=== PATIENT | female | born 1970 | race Asian ===

== ENCOUNTER 2016-11-23 07:15 | Outpatient (CLI) | payer OTHER ==
[2016-11-23 07:28] LABS: PLATELET COUNT 184 K/uL (152-353)
[2016-11-23 08:02] LABS: POTASSIUM 3.6 mmol/L (3.6-5.2); SODIUM 135 mmol/L (136-145)
== END 2016-11-23 08:20 | disposition home or self-care (01) ==
LOC: LABW 07:15
PROVIDERS: Internal Medicine
DX: E11.9 Type 2 diabetes mellitus without complications (principal)
CPT/HCPCS: 36415; 80053; 80061; 81000; 82043; 82570; 83036; 84443; 85027

== ENCOUNTER 2017-06-04 13:25 | Outpatient (CLI) | payer OTHER ==
[2017-06-04 13:50] LABS: PLATELET COUNT 217 K/uL (152-353)
[2017-06-04 14:11] LABS: POTASSIUM 3.9 mmol/L (3.6-5.2)
== END 2017-06-04 18:51 | disposition home or self-care (01) ==
LOC: LABW 13:25
PROVIDERS: Physician Assistant
DX: E11.9 Type 2 diabetes mellitus without complications (principal); I10 Essential (primary) hypertension; D64.89 Other specified anemias
CPT/HCPCS: 36415; 80053; 80061; 83036; 84439; 84443; 85027

== ENCOUNTER 2017-07-10 14:35 | Outpatient (CLI) | payer OTHER | END 2017-07-10 22:03 | disposition home or self-care (01) | LOC: MAMMO 14:35 | DX: Z12.31 Encounter for screening mammogram for malignant neoplasm of breast (principal) ==

== ENCOUNTER 2018-12-24 09:45 | Outpatient (CLI) | payer OTHER ==
[2018-12-24 10:11] LABS: PLATELET COUNT 214 K/uL (152-353)
== END 2018-12-24 23:35 | disposition home or self-care (01) ==
LOC: LABW 09:45
PROVIDERS: Physician Assistant
DX: I10 Essential (primary) hypertension (principal); D64.9 Anemia, unspecified; E11.40 Type 2 diabetes mellitus with diabetic neuropathy, unspecified; E11.65 Type 2 diabetes mellitus with hyperglycemia
CPT/HCPCS: 36415; 80053; 80061; 82306; 83036; 84443; 85027

== ENCOUNTER 2020-05-31 15:05 | Emergency (ER) | payer OTHER ==
[~2020-05-31] VITALS: Ht 165.1 cm; Wt 60.8 kg
[2020-05-31 15:17] VITALS: TEMP 98.9
[2020-05-31 16:45] LABS: PLATELET COUNT 179 K/uL (152-353)
[2020-05-31 16:47] LABS: POTASSIUM 3.4 mmol/L (3.6-5.2)
[2020-05-31 17:54] VITALS: BP 132/80
== END 2020-05-31 17:54 | disposition home or self-care (01) ==
LOC: ED 15:05
PROVIDERS: Hospitalist
DX: E11.65 Type 2 diabetes mellitus with hyperglycemia (principal); E72.51 Non-ketotic hyperglycinemia
CPT/HCPCS: 36415; 80053; 80320; 81002; 81025; 85027; 93005; 96360; 96375; 99284; J1815

== ENCOUNTER 2022-01-18 08:48 | Outpatient (CLI) | payer OTHER ==
[2022-01-18 09:14] LABS: PLATELET COUNT 157 K/uL (152-353)
[2022-01-18 09:33] LABS: POTASSIUM 3.4 mmol/L (3.6-5.2)
== END 2022-01-18 19:08 | disposition home or self-care (01) ==
LOC: LABW 08:48
PROVIDERS: ATTEND Podiatrist
DX: E11.9 Type 2 diabetes mellitus without complications (principal); I10 Essential (primary) hypertension; F41.9 Anxiety disorder, unspecified; F32.A Depression, unspecified; M25.50 Pain in unspecified joint; K21.9 Gastro-esophageal reflux disease without esophagitis; E55.9 Vitamin D deficiency, unspecified; M84.871 Other disorders of continuity of bone, right ankle and foot; R82.998 Other abnormal findings in urine
CPT/HCPCS: 36415; 80053; 80061; 81002; 81015; 82306; 83036; 83735; 84439; 84443; 84550; 85027; 87077; 87086; 87088; 87186

== ENCOUNTER 2022-03-08 09:40 | Outpatient (CLI) | payer OTHER | END 2022-03-08 19:29 | disposition home or self-care (01) | LOC: MAMMO 09:40 | PROVIDERS: ATTEND Family Medicine | DX: Z13.820 Encounter for screening for osteoporosis (principal); Z78.0 Asymptomatic menopausal state; Z12.31 Encounter for screening mammogram for malignant neoplasm of breast ==

== ENCOUNTER 2022-04-01 07:56 | Emergency (ER) | payer OTHER ==
[~2022-04-01] VITALS: Ht 165.1 cm; Wt 60.8 kg
[2022-04-01 09:15] LABS: PLATELET COUNT 200 K/uL (152-353)
[2022-04-01 09:22] LABS: POTASSIUM 3.9 mmol/L (3.6-5.2)
[2022-04-01 12:55] VITALS: BP 108/72; TEMP 97.6
== END 2022-04-01 12:55 | disposition home or self-care (01) ==
LOC: ED 07:56
PROVIDERS: Emergency Medicine
DX: R10.13 Epigastric pain (principal); R63.4 Abnormal weight loss; A59.9 Trichomoniasis, unspecified
CPT/HCPCS: 80053; 81000; 83690; 84484; 85027; 87077; 87086; 87088; 87186; 93005; 96360; 96374; 96375; 99284; J2405; J3490

== ENCOUNTER 2022-04-27 08:11 | Outpatient (CLI) | payer OTHER | END 2022-04-27 20:39 | disposition home or self-care (01) | LOC: RAD 08:11 | PROVIDERS: ATTEND Internal Medicine | DX: Z53.8 Procedure and treatment not carried out for other reasons (principal); Z12.11 Encounter for screening for malignant neoplasm of colon ==

== ENCOUNTER 2022-06-02 10:00 | Outpatient (CLI) | payer OTHER | END 2022-06-02 19:23 | disposition home or self-care (01) | LOC: RAD 10:00 | PROVIDERS: ATTEND Family Medicine | DX: R10.9 Unspecified abdominal pain (principal); R19.7 Diarrhea, unspecified ==

== ENCOUNTER 2022-06-09 11:05 | Observation (INO) | payer OTHER ==
[~2022-06-09] VITALS: Ht 160 cm; Wt 45.6 kg
[2022-06-09 12:46] LABS: PLATELET COUNT 225 K/uL (152-353)
[2022-06-09 12:54] VITALS: BP 138/94; TEMP 97.7; Ht 160 cm; Wt 45.6 kg
[2022-06-09 13:29] LABS: POTASSIUM 3.8 mmol/L (3.6-5.2)
[2022-06-09] MEDS ORDERED: MOBIC15 MG PO (14:01)
[2022-06-09] MEDS ORDERED: METF100038 PO (14:02)
[2022-06-09] MEDS ORDERED: GABA300C2 PO (14:02)
[2022-06-09] MEDS ORDERED: LISI5TAB10 PO (14:02)
[2022-06-09] MEDS ORDERED: PROTONIX20 MG PO (14:03)
[2022-06-09] MEDS ORDERED: LINZESS290 MCG PO (14:03)
[2022-06-09] MEDS ORDERED: OMEP40CA PO (14:04)
[2022-06-09] MEDS ORDERED: LANTUS100 UNIT/M SC (14:06)
[2022-06-09 16:00] VITALS: BP 136/91; TEMP 98.8
[2022-06-09 19:43] VITALS: BP 141/90; TEMP 98.7
[2022-06-09 23:53] VITALS: BP 150/90; TEMP 98.3
[2022-06-10 03:45] VITALS: BP 142/87; TEMP 98.5
[2022-06-10 08:00] VITALS: BP 130/87; TEMP 98
[2022-06-10 08:36] VITALS: BP 130/87; TEMP 98
[2022-06-10 12:00] VITALS: BP 140/91; TEMP 98.4
[2022-06-10 16:00] VITALS: BP 140/91; TEMP 99
== END 2022-06-10 17:55 | disposition home or self-care (01) ==
LOC: MED/SURG 11:05
PROVIDERS: ADMIT Family Medicine; ATTEND Family Medicine
DX: E86.0 Dehydration (principal); R10.84 Generalized abdominal pain; K56.41 Fecal impaction; R11.2 Nausea with vomiting, unspecified; R63.0 Anorexia; E11.65 Type 2 diabetes mellitus with hyperglycemia; I10 Essential (primary) hypertension; Z11.52 Encounter for screening for COVID-19
CPT/HCPCS: 80053; 82948; 83036; 84439; 84443; 85027; 87635; 96360; 96361; 96372; 96374; 99220; G0378; G0379; J1650; J1815; J3490; U0003

== ENCOUNTER 2022-10-12 11:30 | Emergency (ER) | payer OTHER ==
[~2022-10-12] VITALS: Ht 160 cm; Wt 49.0 kg
[~2022-10-12 11:30] MED LIST: GABA300C2 PO; LANTUS100 UNIT/M SC; LINZESS290 MCG PO; LISI5TAB10 PO; METF100038 PO; MOBIC15 MG PO; OMEP40CA PO; PROTONIX20 MG PO
[2022-10-12 11:48] VITALS: BP 141/88; TEMP 98.8
== END 2022-10-12 13:15 | disposition home or self-care (01) ==
LOC: ED 11:30
DX: E11.65 Type 2 diabetes mellitus with hyperglycemia (principal); Z79.4 Long term (current) use of insulin; Z79.84 Long term (current) use of oral hypoglycemic drugs
CPT/HCPCS: 99282; J1815